=== PATIENT | female | born 2000 | race Two or more races ===

== ENCOUNTER 2019-07-08 11:46 | Emergency (ER) | payer MEDICAID ==
[~2019-07-08] VITALS: Ht 157.5 cm; Wt 83.9 kg
[2019-07-08 12:01] VITALS: BP_SYST 121
[2019-07-08] MEDS ORDERED: IBUPROFEN 600 MG TABLET PO ONE (13:15)
[2019-07-08 13:29] VITALS: BP_SYST 121
== END 2019-07-08 13:29 | disposition home or self-care (01) ==
LOC: SED 11:46
DX: N60.02 Solitary cyst of left breast (principal); N60.01 Solitary cyst of right breast; R03.0 Elevated blood-pressure reading, without diagnosis of hypertension
CPT/HCPCS: 81002; 81025; 99283

== ENCOUNTER 2019-08-27 11:00 | Emergency (ER) | payer MEDICAID ==
[~2019-08-27] VITALS: Ht 157.5 cm; Wt 81.6 kg
[2019-08-27 11:34] VITALS: BP_SYST 123
--- NOTE | 2019-08-27 11:39 | NUR ---
Patient triaged and placed in waiting room. VSS and patient appears in no acute distress at this time. Accompanied by self, awaiting available bed, and MD notified of need for MSE.
[2019-08-27 12:21] LABS: BASOPHILS % (AUTO) 0.5 % (0.0-2.0); EOSINOPHILS % (AUTO) 0.7 % (0.0-4.0); HEMATOCRIT 44.1 % (36-48); HEMOGLOBIN 15.1 g/dL (12.0-16.0); LYMPHOCYTES # (AUTO) 0.6 K/uL (1.0-5.5); LYMPHOCYTES % (AUTO) 22.5 % (20.5-51.5); MEAN CORPUSCULAR HEMOGLOBIN 31 pg (27-31); MEAN CORPUSCULAR HGB CONC 34 % (32-36); MEAN CORPUSCULAR VOLUME 91 fL (79.0-98.0); MONOCYTES # (AUTO) 0.5 K/uL (0.0-1.0); MONOCYTES % (AUTO) 17.3 % (1.7-9.3); NEUTROPHILS # (AUTO) 1.7 K/uL (1.8-7.7); PLATELET COUNT (AUTO) 249 K/uL (130-430); RED BLOOD CELL COUNT(AUTO) 4.84 MIL/uL (4.2-6.2); RED CELL DISTRIBUTION WIDTH 12.8 % (9.0-15.0); WHITE BLOOD COUNT (AUTO) 2.8 K/uL (4.5-11.0)
[2019-08-27 12:50] LABS: CALCIUM 8.9 mg/dL (8.4-11.0); CREATININE 0.78 mg/dL (0.55-1.30); POTASSIUM 3.3 mmol/L (3.5-5.1)
[2019-08-27 13:02] LABS: BILIRUBIN,URINE NEGATIVE (NEGATIVE); BLOOD, URINE 2+ (NEGATIVE); CLARITY/URINE CLEAR (CLEAR); COLOR,URINE YELLOW (YELLOW); GLUCOSE,URINE NEGATIVE (NEGATIVE); KETONES,URINE NEGATIVE (NEGATIVE); LEUKOCYTE ESTERASE ,URINE NEGATIVE (NEGATIVE); NITRITE, URINE NEGATIVE (NEGATIVE); PH,URINE 6.5 (5.0-8.0); PROTEIN URINE NEGATIVE (NEGATIVE)
[2019-08-27 13:05] LABS: ALBUMIN 4.2 g/dL (3.4-4.8); THYROID STIMULATING HORMONE 0.75 uIu/mL (0.36-3.74); TOTAL BILIRUBIN 1.5 mg/dL (0.0-1.0)
[2019-08-27 13:09] LABS: BACTERIA,URINE FEW /HPF (None Seen); WBC,URINE 0-3 /HPF (0-3)
[2019-08-27 13:10] LABS: MUCUS,URINE 1+ /LPF (None Seen)
[2019-08-27 13:16] LABS: BARBITURATE, URINE NEGATIVE (NEG <=200); BENZODIAZEPINE, URINE NEGATIVE (NEG <=150); CANNABINOID, URINE NEGATIVE (NEG <=50); COCAINE, URINE NEGATIVE (NEG <=150); METHAMPHETAMINES SCREEN,URINE NEGATIVE (NEG <=500); OPIATE, URINE NEGATIVE (NEG <=100); PHENCYCLIDINE SCREEN,URINE NEGATIVE (NEG <=25); UR TRICYCLIC ANTIDEPRESSANTS NEGATIVE (NEG <=300); URINE AMPHETAMINE NEGATIVE (NEG <=500); URINE METHADONE NEGATIVE (NEG <=200); URINE OXYCODONE SCREEN NEGATIVE (NEG <=100); URINE PROPOXYPHENE SCREEN NEGATIVE (NEG <=300)
--- NOTE | 2019-08-27 13:25 | NUR ---
Patient to ER bed 07 to gown for evaluation. Side rails up.
--- NOTE | 2019-08-27 13:30 | NUR ---
Patient is awake, alert, and oriented x4. Patient reports sudden onset nausea and dizziness since 0400 yesterday. Patient presents with horizontal nystagmus and nausea.
--- NOTE | 2019-08-27 13:34 | NUR ---
DILLON Ravi at bedside examining patient.
[2019-08-27] MEDS ORDERED: KETOROLAC TROMETHAMINE 30 MG VIAL IVP ONE (13:45)
[2019-08-27] MEDS ORDERED: POTASSIUM CHLORIDE 20 MEQ TAB.PRT.SR PO ONE (13:45)
[2019-08-27] MEDS ORDERED: NACL 0.9% 1,000 ML IV ONE (13:45)
[2019-08-27] MEDS ORDERED: ONDANSETRON HCL 4 MG/2 ML VIAL IVP ONE (13:45)
[2019-08-27] MEDS ORDERED: POTASSIUM CHLORIDE 10 MEQ TAB.PRT.SR ONE (14:04)
[2019-08-27 14:20] VITALS: BP_SYST 126
--- NOTE | 2019-08-27 14:34 | NUR ---
Patient given written and verbal discharge instructions and verbalizes understanding. ER MD discussed with patient the results and treatment provided. Patient in stable condition. ID arm band removed. IV catheter removed intact and dressing applied, no active bleeding. Rx of Zofran given. Patient educated on pain management and to follow up with PMD. Pain Scale 2/10 tolerable for pt . Opportunity for questions provided and answered. Medication side effect fact sheet provided.
== END 2019-08-27 14:20 | disposition home or self-care (01) ==
LOC: SED 11:00
DX: S09.90XA Unspecified injury of head, initial encounter (principal); R11.2 Nausea with vomiting, unspecified; R19.7 Diarrhea, unspecified; E87.6 Hypokalemia; W19.XXXA Unspecified fall, initial encounter; Y93.89 Activity, other specified; Y92.89 Other specified places as the place of occurrence of the external cause; Y99.8 Other external cause status
CPT/HCPCS: 36415; 70450; 71045; 80053; 80307; 81000; 81025; 84443; 85025; 86710; 93005; 96361; 96374; 99284; J2405; J7030; J1885

== ENCOUNTER 2019-10-06 15:50 | Emergency (ER) | payer MEDICAID ==
[~2019-10-06] VITALS: Ht 157.5 cm; Wt 79.4 kg
[2019-10-06 16:00] VITALS: BP_SYST 147
--- NOTE | 2019-10-06 16:00 | NUR ---
Patient to ER bed h1 for evaluation. Side rails up.
--- NOTE | 2019-10-06 16:05 | NUR ---
Pt AAOx4 ambulated into ED c/o 12/28 pain, redness, swelling, to R upper and arm and abdomen r/t bug bite x 2 days ago. No active bleeding present. Denies taking medication prior to arrival. Will continue to monitor.
--- NOTE | 2019-10-06 16:08 | NUR ---
ER Dr. Chavira at bedside examining patient.
[2019-10-06 16:29] VITALS: BP_SYST 147
--- NOTE | 2019-10-06 16:30 | NUR ---
Patient given written and verbal discharge instructions and verbalizes understanding. ER MD Chavira discussed with patient the results and treatment provided. Patient in stable condition. ID arm band removed. Rx of Benadryl, Tylenol, Keflex given. Patient educated on pain management and to follow up with PMD. Pain Scale 4. Opportunity for questions provided and answered. Medication side effect fact sheet provided.
== END 2019-10-06 16:30 | disposition home or self-care (01) ==
LOC: SED 15:50
DX: S30.861A Insect bite (nonvenomous) of abdominal wall, initial encounter (principal); S40.861A Insect bite (nonvenomous) of right upper arm, initial encounter; L03.311 Cellulitis of abdominal wall; L03.113 Cellulitis of right upper limb; W57.XXXA Bitten or stung by nonvenomous insect and other nonvenomous arthropods, initial encounter; Y93.89 Activity, other specified; Y92.89 Other specified places as the place of occurrence of the external cause; Y99.8 Other external cause status
CPT/HCPCS: 99283

== ENCOUNTER 2021-12-23 17:42 | Emergency (ER) | payer MEDICAID ==
[~2021-12-23] VITALS: Ht 157.5 cm; Wt 97.1 kg
[2021-12-23 17:42] VITALS: BP_SYST 131
--- NOTE | 2021-12-23 17:42 | NUR ---
Patient to ER bed 03 to gown for evaluation. Side rails up.
--- NOTE | 2021-12-23 17:43 | NUR ---
Pt brought by self, A&Ox4, pt presents to ER with episodes of headache /dizziness and nosebleeds in the last couple days,pt states it is usually at night time, pt is 13 weeks , denies nosebleeds or vaginal bleeding , skin pink and warm, cap refill <3.
--- NOTE | 2021-12-23 18:19 | NUR ---
Dr Underwood evaluating patient at bedside
--- NOTE | 2021-12-23 18:25 | NUR ---
Pt off the unit for ultrasound.
[2021-12-23 18:36] LABS: BILIRUBIN,URINE NEGATIVE (NEGATIVE); BLOOD, URINE NEGATIVE (NEGATIVE); CLARITY/URINE CLEAR (CLEAR); COLOR,URINE YELLOW (YELLOW); GLUCOSE,URINE NEGATIVE (NEGATIVE); KETONES,URINE TRACE (NEGATIVE); LEUKOCYTE ESTERASE ,URINE NEGATIVE (NEGATIVE); NITRITE, URINE NEGATIVE (NEGATIVE); PROTEIN URINE NEGATIVE (NEGATIVE); UROBILINOGEN,URINE 0.2 (0.2-1.0)
--- NOTE | 2021-12-23 19:00 | NUR ---
Pt returning from ultrasound at this time, pt on stable condition.
--- NOTE | 2021-12-23 19:05 | NUR ---
report received from outgoing RN and patient care assumed.
--- NOTE | 2021-12-23 19:34 | NUR ---
Pt came in for complaints of headache & nosebleeds. Currently resting comfortably in bed, no current complaints of pain or discomfort, and no signs of bleeding while in ER. Pt is A&Ox4, regular HR & rhythm, saturing well on ra. Lungs cta bilaterally, +2 peripheral pulses, no focal deficits. Currently waiting on labatory results. No IV placement. Will continue to monitor.
[2021-12-23 19:49] LABS: BASOPHILS % (AUTO) 0.3 % (0.0-2.0); EOSINOPHILS % (AUTO) 0.5 % (0.0-4.0); HEMOGLOBIN 12.8 g/dL (12.0-16.0); LYMPHOCYTES # (AUTO) 1.6 K/uL (1.0-5.5); LYMPHOCYTES % (AUTO) 22.2 % (20.5-51.5); MEAN CORPUSCULAR HEMOGLOBIN 29 pg (27-31); MEAN CORPUSCULAR HGB CONC 35 % (32-36); MEAN CORPUSCULAR VOLUME 85 fL (79.0-98.0); MONOCYTES # (AUTO) 0.4 K/uL (0.0-1.0); MONOCYTES % (AUTO) 5.6 % (1.7-9.3); NEUTROPHILS # (AUTO) 5.3 K/uL (1.8-7.7); NEUTROPHILS % (AUTO) 71.4 % (40.0-70.0); PLATELET COUNT (AUTO) 255 K/uL (130-430); RED BLOOD CELL COUNT(AUTO) 4.35 MIL/uL (4.2-6.2); RED CELL DISTRIBUTION WIDTH 14.5 % (9.0-15.0); WHITE BLOOD COUNT (AUTO) 7.4 K/uL (4.8-10.8)
[2021-12-23 20:03] LABS: CALCIUM 8.6 mg/dL (8.4-11.0); CREATININE 0.62 mg/dL (0.55-1.30); POTASSIUM 4.4 mmol/L (3.5-5.1)
[2021-12-23 20:09] LABS: ALBUMIN 3.3 g/dL (3.4-4.8); TOTAL BILIRUBIN 0.6 mg/dL (0.0-1.0)
[2021-12-23 21:02] VITALS: BP_SYST 95
== END 2021-12-23 21:05 | disposition home or self-care (01) ==
LOC: SED 17:42
DX: R55 Syncope and collapse (principal); O26.891 Other specified pregnancy related conditions, first trimester; R04.0 Epistaxis; Z3A.13 13 weeks gestation of pregnancy
CPT/HCPCS: 36415; 76805-TC; 80053; 81003; 81025; 85025; 93005; 99284

== ENCOUNTER 2023-09-08 00:10 | Emergency (ER) | payer MEDICAID ==
[~2023-09-08] VITALS: Ht 157.5 cm; Wt 106.6 kg
[2023-09-08 00:14] VITALS: BP_SYST 134; PULSE 86; RESP 16; TEMP 97; O2SAT 99
[2023-09-08 02:23] VITALS: BP_SYST 134; PULSE 86; RESP 16; TEMP 97; O2SAT 99
== END 2023-09-08 03:59 | disposition home or self-care (01) ==
LOC: SED 00:10
DX: M77.32 Calcaneal spur, left foot (principal); M79.672 Pain in left foot; Z79.899 Other long term (current) drug therapy
CPT/HCPCS: 99283